=== PATIENT | male | born 1970 | race Caucasian/White ===

== ENCOUNTER 2019-12-19 10:15 | Emergency (ER) | payer OTHER ==
[2019-12-19 10:55] LABS: PTT,PARTIAL THROMBOPLSTIN TIME 24.6 SEC (23.2-32.3)
[2019-12-19 10:59] LABS: CHLORIDE,CL 98 mEq/L (98-106); SODIUM,NA 137 mEq/L (136-145)
--- NOTE | 2019-12-19 11:40 | EDM.PDOC ---
ED HPI GENERAL MEDICAL PROBLEM - General Chief Complaint: General Stated Complaint: chest discomfort Time Seen by Provider: 12/19/19 10:30 Source of Information: Reports: Patient History Limitations: Reports: No Limitations - History of Present Illness INITIAL COMMENTS - FREE TEXT/NARRATIVE: Patient presents to ER with complaints of left arm and facial numbness. 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 At first, thought related to hold his left arm up on the steering wheel but even after shaking it off, it hasn't resolved. Then started noting left facial numbness. Has had neck pain in the past but never anything like this. He did not a "strange dull pain across his left chest". Denies shortness of breath. Has been feeling well. No fevers. No diaphoresis. Denies nausea/vomiting/abdominal discomfort. Does not note left side weakness. No visual changes. Onset: Today Duration: Hour(s): Location: Reports: Upper Extremity, Left Quality: Reports: Ache, Other (numbnes) Severity: Mild Associated Symptoms: Reports: Chest Pain. Denies: Confusion, Cough, Fever/ Chills, Headaches, Loss of Appetite, Malaise, Nausea/Vomiting, Shortness of Breath, Syncope, Weakness - Related Data Allergies Allergy/AdvReac Type Severity Reaction Status Date / Time sulfamethoxazole Allergy Other Verified 12/19/19 11:06 [From ] trimethoprim [From ] Allergy Other Verified 12/19/19 11:06 Home Meds: Home Meds Cholecalciferol (Vitamin D3) [Vitamin D3] 2,000 unit PO DAILY 12/19/19 [History] Levothyroxine 75 mcg PO ACBREAKFAST 12/19/19 [History] Lisinopril/Hydrochlorothiazide [Zestoretic 20-12.5 mg Tablet] 1 tab PO DAILY [History] Methylcellulose [Citrucel] 500 mg PO DAILY 12/19/19 [History] Multivitamin with Minerals [Multiple Vitamin] 1 tab PO DAILY 12/19/19 [History] [place]-3/DHA/Epa/Fish Oil [Ultra [place]-3 Softgel] 1 tab PO DAILY 12/19/19 [ History] Secukinumab [Cosentyx Pen] 2 ml [id number] ASDIRECTED 12/19/19 [History] Vitamin E 400 units PO DAILY 12/19/19 [History] Past Medical History Cardiovascular History: Reports: Hypertension Endocrine/Metabolic History: Reports: Hypothyroidism Social & Family History - Tobacco Use Smoking Status *Q: Never Smoker - Caffeine Use Caffeine Use: Reports: Soda - Recreational Drug Use Recreational Drug Use: No ED ROS GENERAL - Review of Systems Review Of Systems: See Below Constitutional: Denies: Fever, Chills, Malaise, Weakness, Fatigue, Diaphoresis HEENT: Reports: No Symptoms Respiratory: Denies: Shortness of Breath, Cough Cardiovascular: Reports: Chest Pain. Denies: Edema, Lightheadedness Endocrine: Denies: Fatigue GI/Abdominal: Denies: Abdominal Pain, Constipation, Diarrhea, Nausea, Vomiting : Reports: No Symptoms Musculoskeletal: Reports: Arm Pain Neurological: Reports: Numbness, Tingling ED EXAM, GENERAL - Physical Exam Exam: See Below Exam Limited By: No Limitations General Appearance: Alert, WD/WN, No Apparent Distress Eye Exam: Bilateral Eye: EOMI, PERRL Ears: Normal External Exam, Normal TMs Nose: Normal Inspection, Normal Mucosa, No Blood Throat/Mouth: Normal Inspection, Normal Oropharynx Head: Normocephalic Neck: Normal Inspection, Supple, Non-Tender Respiratory/Chest: No Respiratory Distress, Lungs Clear, Normal Breath Sounds Cardiovascular: Regular Rate, Rhythm, No Edema GI/Abdominal: Normal Bowel Sounds, Soft, Non-Tender Extremities: Normal Inspection, Normal Range of Motion, No Pedal Edema, Arm Pain (has chronic tendonitis but states "this is different". ) Neurological: Alert, Oriented, CN II-XII Intact, Normal Cognition, Normal Gait, Normal Reflexes, No Motor/Sensory Deficits Skin Exam: Warm, Dry Course - Vital Signs Last Recorded V/S: Last Vital Signs Temp 96.9 F 12/19/19 11:15 Pulse 80 12/19/19 11:15 Resp 16 12/19/19 11:15 BP 143/86 H 12/19/19 11:15 Pulse Ox 100 12/19/19 11:15 - Orders/Labs/Meds Orders: Active Orders 24 hr Category Date Time Status Chest 2V [CR] Routine Exams 12/19/19 Taken Head wo Cont [CT] Stat Exams 12/19/19 11:23 Ordered Orphenadrine [Norflex] Med 12/19/19 11:54 Once 60 mg IM ONETIME ONE Medication Orders Orphenadrine Citrate (Norflex) 60 mg IM ONETIME ONE Stop: 12/19/19 11:55 Labs: Laboratory Tests 12/19/19 12/19/19 12/19/19 Range/Units 10:15 10:34 10:34 WBC 5.8 (5.0-10.0) 10^3/uL RBC 4.97 (4.50-6.00) 10^6/uL Hgb 15.5 (14.0-18.0) g/dL Hct 43.7 (40.0-54.0) % MCV 87.9 (82.0-94.0) fL MCH 31.2 (27.0-32.0) pg MCHC 35.5 (33.0-38.0) g/dL RDW Coeff of Radha 11.9 (11.0-15.0) % Plt Count 167 (150-400) 10^3/uL Neut % (Auto) 59.8 (35-85) % Lymph % (Auto) 28.9 (10-55) % Bowie % (Auto) 9.4 (0-16) % Eos % (Auto) 1.6 (0-5) % Baso % (Auto) 0.3 (0-3) % Neut # (Auto) 3.45 (1.80-7.00) 10^3/uL Lymph # (Auto) 1.67 (1.00-4.80) 10^3/uL Bowie # (Auto) 0.54 (0.00-0.80) 10^3/uL Eos # (Auto) 0.09 (0.00-0.45) 10^3/uL Baso # (Auto) 0.02 10^3/uL PT 11.4 (9.7-12.3) SEC INR 1.13 (0.92-1.18) APTT 24.6 (23.2-32.3) SEC Sodium 137 (136-145) mEq/L Potassium 4.4 (3.5-5.0) mEq/L Chloride 98 (98-106) mEq/L Carbon Dioxide 33 H (21-32) mmol/L BUN 13 (7-18) mg/dL Creatinine 1.1 (0.7-1.3) mg/dL Est Cr Clr Drug Dosing TNP Estimated GFR (MDRD) > 60 (>=60) mL/min Glucose 103 H (75-99) mg/dL Calcium 9.6 (8.4-10.1) mg/dL Total Bilirubin 0.8 (0.0-1.0) mg/dL AST 25 (15-37) U/L ALT 44 (12-78) U/L Alkaline Phosphatase 71 (46-116) U/L Lactate Dehydrogenase 168 (100-190) U/L Creatine Kinase 210 (35-232) U/L Troponin I < 0.017 (0.00-0.06) ng/mL Total Protein 8.3 H (6.4-8.2) g/dL Albumin 4.4 (3.4-5.0) g/dL Lipase 160 (73-393) U/L Meds: Medications Generic Name Dose Route Start Last Admin Trade Name Freq PRN Reason Stop Dose Admin Orphenadrine Citrate 60 mg 12/19/19 11:54 Norflex IM 12/19/19 11:55 ONETIME ONE Discontinued Medications Generic Name Dose Route Start Last Admin Trade Name Freq PRN Reason Stop Dose Admin Ketorolac Tromethamine 60 mg 12/19/19 11:53 Toradol IM 12/19/19 11:54 ONETIME ONE - Re-Assessments/Exams Free Text/Narrative Re-Assessment/Exam: 12/19/19 11:20 Labs are all normal. EKG normal. Chest xray normal. Does feel tingling is better but still not resolved. Discussed with Dr. Mckenzie. Will proceed with CT scan of head. Blood pressure was high initially but has improved. See vital signs. 12/19/19 11:55 CT scan of head is negative. Will give Toradol as arm is aching more now in to his shoulder and feels stiff. Departure - Departure Time of Disposition: 11:55 Disposition: Home, Self-Care 01 Condition: Good Clinical Impression: Arm numbness left - Discharge Information *PRESCRIPTION DRUG MONITORING PROGRAM REVIEWED*: No *COPY OF PRESCRIPTION DRUG MONITORING REPORT IN PATIENT HARPAL: No Forms: ED Department Discharge Additional Instructions: 1. Rest left arm/shoulder, no further heavy lifting today 2. Ibuprofen every 6 hours as needed for discomfort 3. Follow up with primary care provider for high blood pressure and further numbness or discomfort as may need further testing of shoulder/arm Sepsis Event Note - Evaluation Sepsis Screening Result: No Definite Risk - Focused Exam Vital Signs: Vital Signs Temp Pulse Resp BP Pulse Ox 12/19/19 11:15 96.9 F 80 16 143/86 H 100 12/19/19 11:00 97.6 F 83 16 158/117 H 97 12/19/19 10:45 97.6 F 86 16 154/109 H 97 12/19/19 10:30 97.2 F 85 13 177/131 H 99 12/19/19 10:15 96.4 F L 82 16 152/102 H 99 Date Exam was Performed: 12/19/19 Time Exam was Performed: 11:54 - My Orders Last 24 Hours: My Active Orders 12/19/19 Chest 2V [CR] Routine 12/19/19 11:23 Head wo Cont [CT] Stat 12/19/19 11:54 Orphenadrine [Norflex] 60 mg IM ONETIME ONE - Assessment/Plan Last 24 Hours: My Active Orders 12/19/19 Chest 2V [CR] Routine 12/19/19 11:23 Head wo Cont [CT] Stat 12/19/19 11:54 Orphenadrine [Norflex] 60 mg IM ONETIME ONE
[2019-12-19] MEDS: Ketorolac 60 MG/2 ML SDV IM ONE (11:59)
== END 2019-12-19 12:10 | disposition home or self-care (01) ==
LOC: CC.ED 10:15
DX: R20.0 Anesthesia of skin (principal); I10 Essential (primary) hypertension; E03.9 Hypothyroidism, unspecified; Z79.899 Other long term (current) drug therapy; Z88.2 Allergy status to sulfonamides
CPT/HCPCS: 36415; 70450; 71046; 80053; 82550; 83615; 83690; 84484; 85025; 85610; 85730; 93005; 96372; 99285; J1885; J2360